=== PATIENT | female | born 1980 | race Caucasian/White ===

== ENCOUNTER → 2023-01-01 08:03 | Outpatient (CLI) | payer OTHER, SELFPAY ==
--- NOTE | ~2023-01-01 | MM_ITS ---
EXAMINATION: MM diagnostic braden BI w heidy HISTORY: Palpable lump in the subareolar aspect of the left breast TECHNIQUE: Craniocaudal, mediolateral, and mediolateral oblique 3-D tomosynthesis images of the breas ts were performed and synthetic 2-D images were generated. CAD analysis was submitted and interpreted . COMPARISON: No prior mammogram is currently available for comparison at this institution BREAST PARENCHYMAL COMPOSITION: The breasts are almost entirely fatty. FINDINGS: There are changes of bilateral reduction mammoplasty. No suspicious mass, calcification, or architectural distortion are identified in either breast. There are oil cysts in the left breast cor responding to the area of palpable concern. IMPRESSION: 1. No mammographic evidence of malignancy. 2. Recommend routine screening mammography in one year. BI-RADS Category 2: Benign finding(s). Reviewed, dictated and finalized at location A. [facility]
== END ==
PROVIDERS: PCP Obstetrics & Gynecology; Visit Provider Obstetrics & Gynecology
DX: N63.24 Unspecified lump in the left breast, lower inner quadrant (principal)
CPT/HCPCS: 77062; 77066; G0279